=== PATIENT | male | born 1985 | race Caucasian/White ===

== ENCOUNTER 2024-08-22 19:15 | Emergency (ER) | payer SELFPAY ==
[~2024-08-22] VITALS: Ht 167.6 cm; Wt 86.6 kg
[2024-08-22 19:39] VITALS: BP_SYST 135; PULSE 80; RESP 17; TEMP 97.8; O2SAT 98
[2024-08-22] MEDS ORDERED: IBUP-1969 PO (20:54)
[2024-08-22] MEDS ORDERED: ACET-2634 PO (20:54)
[2024-08-22] MEDS: ACETAMINOPHEN 500 MG TABLET PO ONE (21:05)
[2024-08-22] MEDS: KETOROLAC TROMETHAMINE 30 MG VIAL IM ONE (21:08)
[2024-08-22 21:30] VITALS: BP_SYST 133; PULSE 75; RESP 17; TEMP 97.8; O2SAT 98
== END 2024-08-22 21:30 | disposition home or self-care (01) ==
LOC: EDBD 19:15 → SED 19:15
DX: S90.122A Contusion of left lesser toe(s) without damage to nail, initial encounter (principal); Z79.899 Other long term (current) drug therapy; W18.49XA Other slipping, tripping and stumbling without falling, initial encounter; Y93.89 Activity, other specified; Y92.89 Other specified places as the place of occurrence of the external cause; Y99.8 Other external cause status
CPT/HCPCS: 99283; 73660; 96372; J1885

== ENCOUNTER 2024-09-14 14:16 | Emergency (ER) | payer OTHER ==
[~2024-09-14] VITALS: Ht 160 cm; Wt 86.2 kg
[~2024-09-14 14:16] MED LIST: ACET-2634 PO; IBUP-1969 PO
[2024-09-14 14:38] VITALS: BP_SYST 107; PULSE 82; RESP 18; TEMP 97.9; O2SAT 100
[2024-09-14 15:37] VITALS: BP_SYST 107; PULSE 82; RESP 18; TEMP 97.9; O2SAT 100
[2024-09-14] MEDS: KETOROLAC TROMETHAMINE 30 MG VIAL IM ONE (15:37)
[2024-09-14] MEDS: CYCLOBENZAPRINE HCL 10 MG TABLET (FLEXERIL) PO ONE (15:38)
== END 2024-09-14 15:40 | disposition home or self-care (01) ==
LOC: SED 14:16
DX: S39.012A Strain of muscle, fascia and tendon of lower back, initial encounter (principal); Z79.899 Other long term (current) drug therapy; W01.0XXA Fall on same level from slipping, tripping and stumbling without subsequent striking against object, initial encounter; Y93.89 Activity, other specified; Y92.89 Other specified places as the place of occurrence of the external cause; Y99.8 Other external cause status
CPT/HCPCS: 99283; 72110; 96372; J1885